=== PATIENT | female | born 1985 | race Caucasian/White ===

== ENCOUNTER 2017-10-28 21:13 | Emergency (ER) | payer BC, OTHER ==
[2017-10-28 22:03] VITALS: BP 126/78
[2017-10-28] MEDS ORDERED: Ketorolac 60 MG/2 ML SDV IM ONE (23:35)
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
== END 2017-10-29 01:15 | disposition home or self-care (01) ==
LOC: JP.ED 21:13
DX: S13.4XXA Sprain of ligaments of cervical spine, initial encounter (principal); Z91.040 Latex allergy status; Z91.030 Bee allergy status; Z79.899 Other long term (current) drug therapy; V43.53XA Car driver injured in collision with pick-up truck in traffic accident, initial encounter
CPT/HCPCS: 72125; 96372; 99284; J1885

== ENCOUNTER 2018-01-25 23:04 | Emergency (ER) | payer BC ==
--- NOTE | 2018-01-26 00:25 | EDM.PDOC ---
ED HPI GENERAL MEDICAL PROBLEM - General Chief Complaint: General Stated Complaint: CHEST PRESSURE Time Seen by Provider: 01/25/18 23:20 Source of Information: Reports: Patient History Limitations: Reports: No Limitations - History of Present Illness INITIAL COMMENTS - FREE TEXT/NARRATIVE: pt arrived with prssure on her chest rating the discomfort at a 2-3/ She did not get sweaty or did not get nauseated. She did not have a fever or cough. She has no history of cardiac problems. Onset: Today, Gradual, Other ( Started about 930 and has been persistent. It has never gotten severe. ) Duration: Hour(s): Location: Reports: Chest Quality: Reports: Pressure Associated Symptoms: Reports: Other ( chest pressure) Epigastric Pain Score (Numeric/FACES): 2 - Related Data Allergies Allergy/AdvReac Type Severity Reaction Status Date / Time latex Allergy Rash Verified 01/25/18 23:21 thimerosal Allergy Cannot Verified 01/25/18 23:21 Remember venom-honey bee Allergy Difficulty Verified 01/25/18 23:21 [bee venom (honey bee)] Breathing Home Meds: Home Meds Cetirizine HCl [Zyrtec] 10 mg PO DAILY 02/12/14 [History] EPINEPHrine [Epipen 2-Jerzy] 1 unit IM ASDIRECTED PRN 02/12/14 [History] Multivitamin with Minerals [Multiple Vitamin] 1 tab PO DAILY 02/12/14 [History] Norethindrone-E.estradiol-Iron [Microgestin Fe 1.5-30] 1 tab PO DAILY 02/12/14 [ History] Cholecalciferol (Vitamin D3) [Vitamin D3] 1 tab PO DAILY 01/25/18 [History] L.acidoph,Paracasei, B.lactis [Probiotic] 1 each PO DAILY 01/25/18 [History] Past Medical History HEENT History: Reports: Impaired Vision Other HEENT History: wear glassess Cardiovascular History: Reports: Heart Murmur Other Gastrointestinal History: loose stools with blood x 3 months, left side pain radiating to back at times Genitourinary History: Reports: Pyelonephritis Other Genitourinary History: kidney infection 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 History: Reports: Fracture Psychiatric History: Reports: ADD Other Dermatologic History: benign mole removed from right arm - Past Surgical History Head Surgeries/Procedures: Reports: None HEENT Surgical History: Reports: Tonsillectomy Other HEENT Surgeries/Procedures: wisdom teeth extraction GI Surgical History: Reports: Cholecystectomy, Hernia, Abdominal, Other (See Below) Other GI Surgeries/Procedures: liver bx Other Musculoskeletal Surgeries/Procedures:: tenosynovitis surgery to right wrist Social & Family History - Tobacco Use Smoking Status *Q: Never Smoker - Caffeine Use Caffeine Use: Reports: Coffee Other Caffeine Use: minimal - Recreational Drug Use Recreational Drug Use: No ED ROS GENERAL - Review of Systems Review Of Systems: See Below Constitutional: Reports: No Symptoms HEENT: Reports: No Symptoms Respiratory: Reports: No Symptoms Cardiovascular: Reports: No Symptoms Endocrine: Reports: No Symptoms GI/Abdominal: Reports: No Symptoms, Other ( she definitely did not feel this was a heartburn. ) : Reports: No Symptoms Musculoskeletal: Reports: No Symptoms Skin: Reports: No Symptoms ED EXAM, GENERAL - Physical Exam Exam: See Below Free Text/Narrative:: Pt arrived with pain in the sternum area like a pressure rated at a 2. Exam Limited By: No Limitations General Appearance: Alert, Mild Distress Ears: Normal TMs Nose: Normal Inspection Throat/Mouth: Normal Inspection Head: Atraumatic Neck: Normal Inspection Respiratory/Chest: No Respiratory Distress Cardiovascular: Regular Rate, Rhythm GI/Abdominal: Soft, Non-Tender (Female) Exam: Deferred Rectal (Female) Exam: Deferred Back Exam: Normal Inspection Extremities: Normal Inspection Neurological: Alert, Oriented, Normal Cognition Psychiatric: Normal Affect Course - Vital Signs Last Recorded V/S: Last Vital Signs Temp 35.9 C 01/25/18 23:23 Pulse 72 01/26/18 00:38 Resp 16 01/26/18 00:38 BP 107/58 L 01/26/18 00:38 Pulse Ox 97 01/26/18 00:38 - Orders/Labs/Meds Orders: Active Orders 24 hr Category Date Time Status EKG Documentation Completion [RC] ASDIRECTED Care 01/26/18 00:22 Active Chest 1V Frontal [CR] Stat Exams 01/26/18 00:23 Taken EKG 12 Lead [EK] Routine Ther 01/26/18 00:22 Ordered Labs: Laboratory Tests 01/26/18 01/26/18 01/26/18 Range/Units 00:25 00:25 00:25 WBC 11.1 H (4.5-11.0) K/uL RBC 4.40 (3.30-5.50) M/uL Hgb 12.6 (12.0-15.0) g/dL Hct 38.7 (36.0-48.0) % MCV 88 (80-98) fL MCH 29 (27-31) pg MCHC 33 (32-36) % Plt Count 259 (150-400) K/uL Neut % (Auto) 64 (36-66) % Lymph % (Auto) 28 (24-44) % [place] % (Auto) 7 H (2-6) % Eos % (Auto) 1 L (2-4) % Baso % (Auto) 0 (0-1) % Sodium 141 (140-148) mmol/L Potassium 3.9 (3.6-5.2) mmol/L Chloride 106 (100-108) mmol/L Carbon Dioxide 26 (21-32) mmol/L Anion Gap 9.3 (5.0-14.0) mmol/L BUN 10 (7-18) mg/dL Creatinine 0.7 (0.6-1.0) mg/dL Est Cr Clr Drug Dosing 98.71 mL/min Estimated GFR (MDRD) > 60 (>60) Glucose 109 H (74-106) mg/dL Calcium 8.7 (8.5-10.1) mg/dL Total Bilirubin 0.2 (0.2-1.0) mg/dL AST 13 L (15-37) U/L ALT 22 (12-78) U/L Alkaline Phosphatase 64 (46-116) U/L Troponin I (0.000-0.056) ng/mL C-Reactive Protein 0.36 H (0.0-0.3) mg/dL Total Protein 7.1 (6.4-8.2) g/dL Albumin 3.5 (3.4-5.0) g/dL Globulin 3.6 H (2.3-3.5) g/dL Albumin/Globulin Ratio 1.0 L (1.2-2.2) Lipase 188 (73-393) U/L Urine Color Urine Appearance Urine pH (4.5-8.0) Ur Specific [place] (1.008-1.030) Urine Protein (NEGATIVE) mg/dL Urine Glucose (UA) (NEGATIVE) mg/dL Urine Ketones (NEGATIVE) mg/dL Urine Occult Blood (NEGATIVE) Urine Nitrite (NEGATIVE) Urine Bilirubin (NEGATIVE) Urine Urobilinogen (NORMAL) mg/dL Ur Leukocyte Esterase (NEGATIVE) Urine RBC (0-5) Urine WBC (0-5) Ur Epithelial Cells Amorphous Sediment Urine Bacteria Urine Mucus 01/26/18 01/26/18 Range/Units 00:25 00:51 WBC (4.5-11.0) K/uL RBC (3.30-5.50) M/uL Hgb (12.0-15.0) g/dL Hct (36.0-48.0) % MCV (80-98) fL MCH (27-31) pg MCHC (32-36) % Plt Count (150-400) K/uL Neut % (Auto) (36-66) % Lymph % (Auto) (24-44) % [place] % (Auto) (2-6) % Eos % (Auto) (2-4) % Baso % (Auto) (0-1) % Sodium (140-148) mmol/L Potassium (3.6-5.2) mmol/L Chloride (100-108) mmol/L Carbon Dioxide (21-32) mmol/L Anion Gap (5.0-14.0) mmol/L BUN (7-18) mg/dL Creatinine (0.6-1.0) mg/dL Est Cr Clr Drug Dosing mL/min Estimated GFR (MDRD) (>60) Glucose (74-106) mg/dL Calcium (8.5-10.1) mg/dL Total Bilirubin (0.2-1.0) mg/dL AST (15-37) U/L ALT (12-78) U/L Alkaline Phosphatase (46-116) U/L Troponin I < 0.017 (0.000-0.056) ng/mL C-Reactive Protein (0.0-0.3) mg/dL Total Protein (6.4-8.2) g/dL Albumin (3.4-5.0) g/dL Globulin (2.3-3.5) g/dL Albumin/Globulin Ratio (1.2-2.2) Lipase (73-393) U/L Urine Color Yellow Urine Appearance Clear Urine pH 7.0 (4.5-8.0) Ur Specific [place] 1.010 (1.008-1.030) Urine Protein Negative (NEGATIVE) mg/dL Urine Glucose (UA) Normal (NEGATIVE) mg/dL Urine Ketones Negative (NEGATIVE) mg/dL Urine Occult Blood Negative (NEGATIVE) Urine Nitrite Negative (NEGATIVE) Urine Bilirubin Negative (NEGATIVE) Urine Urobilinogen Normal (NORMAL) mg/dL Ur Leukocyte Esterase Negative (NEGATIVE) Urine RBC 0-5 (0-5) Urine WBC 0-5 (0-5) Ur Epithelial Cells Few Amorphous Sediment Not seen Urine Bacteria Few Urine Mucus Not seen Meds: Medications Discontinued Medications Generic Name Dose Route Start Last Admin Trade Name Freq PRN Reason Stop Dose Admin Al Hydroxide/Mg Hydroxide 15 0 ml 01/26/18 00:50 01/26/18 01:08 ml/ Lidocaine HCl 15 ml PO 01/26/18 00:51 15 ml ONETIME ONE Administration Ketorolac Tromethamine 60 mg 01/26/18 01:39 Toradol IM 01/26/18 01:40 ONETIME ONE - Re-Assessments/Exams Free Text/Narrative Re-Assessment/Exam: 01/26/18 02:18 pt arrived with pressure in her chest. Her ekg was normal. her trop was normal. she was given a gi cocktail which did not help. She was informed of the normal labs and was offered tordol 60 im and decided not to take that. Her lipase was normal.Pt has mild chest wall tenderness. 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 01/26/18 02:23 Departure - Departure Time of Disposition: 02:10 Disposition: Home, Self-Care 01 Condition: Fair Clinical Impression: Chest wall pain - Discharge Information Referrals: Lloyd French MD [Primary Care Provider] - Forms: ED Department Discharge Care Plan Goals: moist heat to anterior chest, motrin 600mh q6h for chest tightness. rtc if this should get more severe. - My Orders Last 24 Hours: My Active Orders 01/26/18 00:22 EKG Documentation Completion [RC] ASDIRECTED EKG 12 Lead [EK] Routine 01/26/18 00:23 Chest 1V Frontal [CR] Stat - Assessment/Plan Last 24 Hours: My Active Orders 01/26/18 00:22 EKG Documentation Completion [RC] ASDIRECTED EKG 12 Lead [EK] Routine 01/26/18 00:23 Chest 1V Frontal [CR] Stat
[2018-01-26 00:39] VITALS: BP 107/58
[2018-01-26] MEDS ORDERED: Alum Hydrox/Mag Hydrox/Simeth 15 ML, Lidocaine 2% 15 ML PO ONE ×2 (00:50)
[2018-01-26] MEDS ORDERED: Ketorolac 60 MG/2 ML SDV IM ONE (01:39)
--- NOTE | 2018-01-26 09:02 | CR ---
CHEST: Portable CLINICAL HISTORY:Chest pressure COMPARISON:2013 FINDINGS: Heart size and pulmonary vascularity are normal. No infiltrates are seen. There is an appr oximately 4 cm density superimposed over the cardiac silhouette. There are no effusions Impression: Approximately 4 cm density superimposed over the lower portion cardiac silhouette. A left lower lobe mass is not excluded. Upright two-view chest is recommended to exclude artifact. If this persists, noncontrast CT chest should be performed
== END 2018-01-26 02:20 | disposition home or self-care (01) ==
LOC: JP.ED 23:04
DX: R07.89 Other chest pain (principal); Z91.040 Latex allergy status; Z79.899 Other long term (current) drug therapy
CPT/HCPCS: 36415; 71045; 80053; 81001; 83690; 84484; 85025; 86140; 93005; 99285; A9270